=== PATIENT | male | born 2000 | race Caucasian/White ===

== ENCOUNTER 2023-12-07 07:09 | Emergency (ER) | payer BC, SELFPAY ==
[2023-12-07 07:11] VITALS: BP 125/79
[2023-12-07 07:18] VITALS: BMI 23.5
--- NOTE | 2023-12-07 07:29 | ED.GENMED ---
History of Present Illness
General
Chief Complaint: Back Pain
Source: patient
Exam Limitations: none
Time Seen by Provider: 12/07/23 07:20
History of Present Illness
History of Present Illness:
23-year-old male presents complaining worsening back pain since yesterday. [place] and felt pain then however when he woke up this morning had extreme difficulty getting out of bed. He denies radiation of pain to the leg.
He denies numbness. He denies bowel or bladder dysfunction. The pain is made worse with motion and coughing. No other complaints at this time
Phy Exam
Physical Exam
Physical Exam:
General: Well-appearing male no acute respiratory distress
HEENT: Normocephalic atraumatic
Musculoskeletal exam: Patient is tender over the midline of the lumbar spine as well as the right paraspinous area to the lumbar spine.
Neurologic: Patient is ambulatory. Is good sensation and strength to lower extremities. Bilateral patellar reflexes are 2+
Skin is intact mild sunburn to the upper back
Course
Orders/Labs/Results
Orders:
Orders
12/07/23 07:28
Diazepam [Valium] 5 mg PO NOW STA
Ketorolac [Toradol] 30 mg IM NOW STA
CR Lumbar Spine 2 Or 3 Views Urgent
Comment:
Reason For Exam: back pain
Vital Signs
Initial and Last Documented VS:
Initial Vital Signs
Temp Pulse Resp BP Pulse Ox
98.6 F 87 16 125/79 98
12/07/23 07:11 12/07/23 07:11 12/07/23 07:11 12/07/23 07:11 12/07/23 07:11
Last Documented Vital Signs
Temp Pulse Resp BP Pulse Ox
98.6 F 85 16 130/92 97
12/07/23 07:11 12/07/23 08:09 12/07/23 08:09 12/07/23 08:09 12/07/23 08:09
MDM/Problems Addressed
Differential Diagnosis Includes:
Lower back pain. Consider muscular strain versus herniated disc versus degenerative disc disease. No concerning signs of cauda equina. No fever to suggest infectious source. Will treat symptoms with Toradol IM and p.o. Valium strays pending
*Critical Care Note
Total Time (30-74mins, 75-104mins- exclusive of procedures): Not Applicable
Update Note
Update Note:
X-rays lumbar spine show straightening of the normal curvature otherwise negative for bony abnormality. Patient is feeling better after medicine here. Suspect lumbar strain. Will discharge home with further anti-inflammatories and muscle
relaxants. Stable otherwise. ADmission not indicated. No indication for any advanced imaging such as MRI.
ED Attending Note
-
Portions of this chart may have been created with voice recognition software.� Occasional wrong word or��sound alike� substitutions may have occurred due to the inherent limitations of voice recognition software.
Discharge Plan
Departure
Patient Disposition: Home (Routine Discharge)
Date of Disposition: 12/07/23
Time of Disposition: 08:45
Patient with high blood pressure during this ER visit?: No
Discharge Problem:
Lumbar strain
Prescriptions:
New
ibuprofen 600 mg tablet
600 mg PO Q8H PRN (Reason: Pain) Qty: 14 0RF
methocarbamol 750 mg tablet
750 mg PO TID PRN (Reason: spasm) Qty: 10 0RF
Referrals:
UNKNOWN - PT DOES,NOT KNOW [Family Provider] -
Stand Alone Forms: Return to Work
Activity Restrictions/Additional Instructions:
Use anti-inflammatories and muscle relaxers as directed. Return here for worsening symptoms otherwise follow-up with your family doctor
Interventions
Interventions:
*Risk Screen - Suicide Last Done: 12/07/23 07:11
*General Assessment Last Done: 12/07/23 07:11
*Neglect/Abuse Screening Last Done: 12/07/23 07:11
ED- Fall Risk Assessment Last Done: 12/07/23 07:18
*ED COVID-19 Vaccine History Last Done: 12/07/23 07:18
ED-Musculoskeletal Assessment Last Done: 12/07/23 07:18
Discharge Date and Time
Print Language: HUNGARIAN
[2023-12-07] MEDS: TORADOL 30 MG IM (07:33)
[2023-12-07] MEDS: VALIUM 5 MG PO (07:33)
[2023-12-07 08:02] VITALS: BP 130/92
[2023-12-07 08:09] VITALS: BP 130/92
== END 2023-12-07 09:11 | disposition home or self-care (01) ==
LOC: EMR 07:09
PROVIDERS: EMERGENCY PHYSICIAN Emergency Medicine
DX: S39.012A Strain of muscle, fascia and tendon of lower back, initial encounter (principal); X50.1XXA Overexertion from prolonged static or awkward postures, initial encounter; Y92.832 Beach as the place of occurrence of the external cause; Z88.0 Allergy status to penicillin
CPT/HCPCS: 99284; 96372; 72100